=== PATIENT | female | born 1995 | race Caucasian/White ===

== ENCOUNTER → 2021-03-30 | Outpatient (CLI) | payer OTHER | LOC: HEART 5 11:21 | DX: R55 Syncope and collapse (principal) ==

== ENCOUNTER 2021-04-08 13:00 | Emergency (ER) | payer OTHER ==
[2021-04-08 13:47] LABS: HEMOGLOBIN 13.2 gm/dl (12.3-15.3); RED BLOOD COUNT 4.27 M/UL (4.00-5.10); WHITE BLOOD COUNT 9.2 K/UL (4.5-11.0)
[2021-04-08 14:05] LABS: BUN/CREATININE RATIO 17 (0-10)
== END 2021-04-08 17:15 | disposition home or self-care (01) ==
LOC: ER1 13:00
PROVIDERS: Emergency Medicine
DX: R41.0 Disorientation, unspecified (principal); Z20.822 Contact with and (suspected) exposure to COVID-19; I10 Essential (primary) hypertension; E11.9 Type 2 diabetes mellitus without complications; F17.200 Nicotine dependence, unspecified, uncomplicated
CPT/HCPCS: 0240U; 51701; 70450; 71045; 80053; 80307; 81001; 83605; 83690; 84703; 85025; 93005; 99285

== ENCOUNTER 2021-06-24 14:56 | Emergency (ER) | payer OTHER ==
[2021-06-24 16:27] LABS: RED BLOOD COUNT 4.12 M/UL (4.00-5.10); WHITE BLOOD COUNT 12.2 K/UL (4.5-11.0)
[2021-06-24 16:53] LABS: BUN/CREATININE RATIO 17 (0-10)
[2021-06-24] MEDS ORDERED: ONDANSETRON ODT4 MG SL (20:10)
[2021-06-24] MEDS ORDERED: BENTYL 20MG TAB20 MG PO (20:10)
[2021-06-27 15:11] LABS: CHLAMYDIA TRACHOMATIS, NAA Negative (Negative); NEISSERIA GONORRHOEAE, NAA Negative (Negative)
== END 2021-06-24 20:37 | disposition home or self-care (01) ==
LOC: ER1 14:56
PROVIDERS: Physician Assistant
DX: N93.9 Abnormal uterine and vaginal bleeding, unspecified (principal); R11.2 Nausea with vomiting, unspecified; R19.7 Diarrhea, unspecified; E11.9 Type 2 diabetes mellitus without complications; I10 Essential (primary) hypertension; Z90.49 Acquired absence of other specified parts of digestive tract; Z20.822 Contact with and (suspected) exposure to COVID-19
CPT/HCPCS: 80053; 81001; 83690; 84703; 85025; 86140; 87086; 99284; Q9967; U0002

== ENCOUNTER 2022-07-02 04:21 | Inpatient (IN) | payer OTHER ==
[~2022-07-02] VITALS: Ht 160 cm; Wt 104.3 kg
[~2022-07-02 04:21] MED LIST: BENTYL 20MG TAB20 MG PO; ONDANSETRON ODT4 MG SL
[2022-07-02 05:04] LABS: RED BLOOD COUNT 3.53 M/UL (4.00-5.10); WHITE BLOOD COUNT 10.3 K/UL (4.5-11.0)
[2022-07-02 05:26] LABS: BUN/CREATININE RATIO 17 (0-10)
[2022-07-02] MEDS ORDERED: BACTRIM DS TAB1 EACH PO (09:07)
[2022-07-02] MEDS ORDERED: DICLOFENAC SODI75 MG PO (09:07)
[2022-07-02] MEDS ORDERED: LEXAPRO5 MG PO (09:08)
[2022-07-02] MEDS ORDERED: ABILIFY 2 MG TAB2 MG PO (09:08)
[2022-07-02] MEDS ORDERED: PROPRANOLOL HCL20 MG PO (09:08)
[2022-07-03 02:57] LABS: HEMOGLOBIN 10.8 gm/dl (12.3-15.3); RED BLOOD COUNT 3.48 M/UL (4.00-5.10)
[2022-07-03 03:44] LABS: WHITE BLOOD COUNT 6.4 K/UL (4.5-11.0)
[2022-07-03 03:50] LABS: BUN/CREATININE RATIO 11 (0-10)
[2022-07-04 05:48] LABS: BUN/CREATININE RATIO 14 (0-10)
[2022-07-05 06:33] LABS: HEMOGLOBIN 11.6 gm/dl (12.3-15.3); RED BLOOD COUNT 3.78 M/UL (4.00-5.10)
[2022-07-05 06:57] LABS: BUN/CREATININE RATIO 13 (0-10)
[2022-07-05] MEDS ORDERED: PERCOCET 5-3251 EACH PO (13:00)
[2022-07-06 05:48] LABS: HEMOGLOBIN 11.5 gm/dl (12.3-15.3); RED BLOOD COUNT 3.84 M/UL (4.00-5.10)
[2022-07-06 06:12] LABS: BUN/CREATININE RATIO 12 (0-10)
[2022-07-06 06:23] LABS: WHITE BLOOD COUNT 8.2 K/UL (4.5-11.0)
[2022-07-06] MEDS ORDERED: OMNICEF 300 MG300 MG PO (10:41)
[2022-07-06] MEDS ORDERED: DOXYCYCLINE HY100 MG PO (10:41)
[2022-07-06] MEDS ORDERED: AMOX TR-K CLV1 EAC4 PO (10:51)
== END 2022-07-06 12:11 | disposition home or self-care (01) | DRG 747 ==
LOC: ER1 04:21 → CDU 08:23 → MED SURG 4 08:23
PROVIDERS: Internal Medicine; Obstetrics & Gynecology; Physician Assistant; Physician Assistant Medical; ADMIT Family Medicine
PROC: 0U9M0ZZ Drainage of Vulva, Open Approach (ICD-10-PCS; principal; 2022-07-04 08:00)
DX: N76.4 Abscess of vulva (principal); N76.2 Acute vulvitis; I10 Essential (primary) hypertension; F31.9 Bipolar disorder, unspecified; E66.9 Obesity, unspecified; B96.89 Other specified bacterial agents as the cause of diseases classified elsewhere; E78.5 Hyperlipidemia, unspecified; Z98.51 Tubal ligation status; Z68.35 Body mass index [BMI] 35.0-35.9, adult; Z79.899 Other long term (current) drug therapy; Z98.890 Other specified postprocedural states; Z90.49 Acquired absence of other specified parts of digestive tract; Z83.3 Family history of diabetes mellitus
CPT/HCPCS: 36415; 80048; 80053; 80202; 83605; 83735; 84703; 85025; 85027; 87040; 87070; 87205; 96365; 96368; 99285; J1100; J2250; J2270; J2405; J2543; J2704; J2795; J3010; J3370; J7030; J7070; Q9967